=== PATIENT | male | born 1995 | race African-American/Black ===

== ENCOUNTER 2021-08-01 12:52 | Emergency (ER) | payer MEDICAID ==
[~2021-08-01] VITALS: Ht 193 cm; Wt 90.3 kg
[2021-08-01 12:52] VITALS: BP_SYST 36
[2021-08-01 14:00] LABS: HEMATOCRIT 23.9 % (36-54); HEMOGLOBIN 7.6 g/dL (14.0-18.0); MEAN CORPUSCULAR HEMOGLOBIN 23 pg (27-31); MEAN CORPUSCULAR HGB CONC 32 % (32-36); MEAN CORPUSCULAR VOLUME 72 fL (79.0-98.0); PLATELET COUNT (AUTO) 293 K/uL (130-430); RED CELL DISTRIBUTION WIDTH 18.8 % (9.0-15.0); WHITE BLOOD COUNT (AUTO) 5.6 K/uL (4.8-10.8)
[2021-08-01] MEDS ORDERED: BACITRACIN 1 GM OINT TP ONE ×2 (14:04→14:30)
[2021-08-01 14:59] VITALS: BP_SYST 128
== END 2021-08-01 15:05 | disposition home or self-care (01) ==
LOC: SED 12:52
DX: S41.112D Laceration without foreign body of left upper arm, subsequent encounter (principal); Z48.00 Encounter for change or removal of nonsurgical wound dressing; X58.XXXA Exposure to other specified factors, initial encounter; Y93.89 Activity, other specified; Y92.89 Other specified places as the place of occurrence of the external cause; Y99.8 Other external cause status
CPT/HCPCS: 36415; 83051; 85014; 85048; 85049-TC; 99283

== ENCOUNTER 2022-06-23 17:38 | Emergency (ER) | payer MEDICAID ==
[~2022-06-23] VITALS: Ht 185.4 cm; Wt 102.1 kg
[2022-06-23 17:43] VITALS: BP_SYST 131
[2022-06-23] MEDS ORDERED: NACL 0.9% 1,000 ML IV ONE (18:00)
[2022-06-23 18:29] LABS: BASOPHILS % (AUTO) 0.5 % (0.0-2.0); EOSINOPHILS # (AUTO) 0.1 K/uL (0.0-0.4); EOSINOPHILS % (AUTO) 1.3 % (0.0-4.0); HEMATOCRIT 40.3 % (36-54); HEMOGLOBIN 13.8 g/dL (14.0-18.0); LYMPHOCYTES # (AUTO) 1.6 K/uL (1.0-5.5); LYMPHOCYTES % (AUTO) 24.9 % (20.5-51.5); MEAN CORPUSCULAR HEMOGLOBIN 29 pg (27-31); MEAN CORPUSCULAR HGB CONC 34 % (32-36); MEAN CORPUSCULAR VOLUME 84 fL (79.0-98.0); MONOCYTES # (AUTO) 0.8 K/uL (0.0-1.0); MONOCYTES % (AUTO) 13.1 % (1.7-9.3); NEUTROPHILS # (AUTO) 3.8 K/uL (1.8-7.7); NEUTROPHILS % (AUTO) 60.2 % (40.0-70.0); PLATELET COUNT (AUTO) 177 K/uL (130-430); RED BLOOD CELL COUNT(AUTO) 4.81 MIL/uL (4.2-6.2); RED CELL DISTRIBUTION WIDTH 14.2 % (9.0-15.0); WHITE BLOOD COUNT (AUTO) 6.3 K/uL (4.8-10.8)
[2022-06-23 18:58] LABS: ALANINE AMINOTRANSFERASE 122 U/L (12-78); ANION GAP 14 (5-15); ASPARTATE AMINOTRANSFERASE 200 U/L (10-37); CALCIUM 8.4 mg/dL (8.4-11.0); CHLORIDE 98 mmol/L (98-107); CREATININE 1.05 mg/dL (0.55-1.30); GFR AFRICAN AMERICAN 111 mL/min (>90); GLUCOSE 81 mg/dL (70-99); TOTAL BILIRUBIN 0.8 mg/dL (0.0-1.0); UREA NITROGEN, BLOOD 18 mg/dL (8-21)
[2022-06-23 19:12] LABS: VALPROIC ACID 5 ug/mL (50-100)
[2022-06-23 19:13] LABS: ACETAMINOPHEN < 1 ug/mL (1-30); ALCOHOL, BLOOD < 3 mg/dL (<10)
[2022-06-23 19:35] LABS: CREATINE KINASE MB 61.5 ng/mL (0-3.6)
--- NOTE | 2022-06-23 19:40 | NUR ---
[id number] ER from their gurney w/ steady gait.Dr Veliz aware.
[2022-06-23 19:50] LABS: CKMB RELATIVE INDEX 0.6 (0.0-2.9)
--- NOTE | 2022-06-23 20:00 | NUR ---
Security w/ the pt outside the ER.Pt refused to be back in ER and refused treatment.
== END 2022-06-23 19:40 | disposition left against medical advice (07) ==
LOC: SED 17:38
DX: R41.82 Altered mental status, unspecified (principal); Z79.899 Other long term (current) drug therapy
CPT/HCPCS: 99283; 80053; 82550; 82553; 80164; 85025; 84484; 36415; G0482; G0480; G0481